=== PATIENT | male | born 1960 | race Caucasian/White ===

== ENCOUNTER 2017-01-27 18:37 | Emergency (ER) | payer OTHER ==
[~2017-01-27] VITALS: Ht 162.6 cm; Wt 67.5 kg
[2017-01-27] MEDS ORDERED: SERTRALINE HCL100 MG PO (18:57)
[2017-01-27 19:57] LABS: HEMATOCRIT 40.9 % (38.0-50.0); MCH 29.2 PG (29.0-34.0); MCHC 35.2 G/DL (30.0-36.0); MEAN PLAT.VOLUME 10.3 uM^3 (9.0-12.4); PLATELET COUNT 221 K/uL (156-360); RBC DIS.WIDTH-CV 12.5 % (11.8-14.6); RBC DIS.WIDTH-SD 37.8 % (39-53); RED BLOOD COUNT 4.93 M/uL (4.00-5.50); WHITE BLOOD COUNT 7.4 K/uL (4.1-10.2)
[2017-01-27 20:06] LABS: CHLORIDE 107 mEq/L (99-109); POTASSIUM 3.7 mEq/L (3.7-5.4); SODIUM 141 mEq/L (136-147)
[2017-01-27 20:07] LABS: GLUCOSE 80 mg/dL (70-99)
[2017-01-27 20:09] LABS: ANION GAP 14 MEQ/L (2-14)
[2017-01-27 20:11] LABS: GFR ESTIMATE (CALCULATED) > 59 mL/min/
[2017-01-27 20:12] LABS: D-DIMER ELISA 0.27 mg/L FEU (< 0.57); UREA NITROGEN (BUN) 17 mg/dL (9-23)
[2017-01-27 20:18] LABS: TROP-I INTERPRETATION NEGATIVE; TROPONIN-I < 0.01 ng/mL (0.0-0.30)
[2017-01-27 22:09] VITALS: BP 118/80
== END 2017-01-27 22:09 | disposition left against medical advice (07) ==
LOC: EME → EDBD 18:37 → EME 22:09
PROVIDERS: Emergency Medicine
DX: M25.512 Pain in left shoulder (principal); M79.602 Pain in left arm; R07.9 Chest pain, unspecified; Z87.891 Personal history of nicotine dependence
CPT/HCPCS: 71010; 71020; 73030; 73080; 80048; 84484; 85027; 85379; 99281; 99284

== ENCOUNTER 2017-08-03 05:29 | Day surgery (SDC) | payer OTHER ==
[~2017-08-03] VITALS: Ht 162.6 cm; Wt 67.6 kg
[~2017-08-03 05:29] MED LIST: SERTRALINE HCL100 MG PO; ZOLOFT25 MG PO; ZOLOFT50 MG PO
[2017-08-03 06:52] VITALS: BP 127/88
[2017-08-03 12:25] VITALS: BP 122/78
[2017-08-03 13:07] VITALS: BP 123/76
== END 2017-08-03 13:27 | disposition home or self-care (01) ==
LOC: SDC 05:29
DX: M75.102 Unspecified rotator cuff tear or rupture of left shoulder, not specified as traumatic (principal); M25.812 Other specified joint disorders, left shoulder; M75.52 Bursitis of left shoulder; M19.012 Primary osteoarthritis, left shoulder; Z82.49 Family history of ischemic heart disease and other diseases of the circulatory system
CPT/HCPCS: C1713; J0171; J0690; J1100; J2250; J2405; J2795; J3010